=== PATIENT | female | born 1955 | race Caucasian/White ===

== ENCOUNTER 2016-12-03 06:26 | Observation (INO) | payer MEDICARE, OTHER ==
[~2016-12-03] VITALS: Ht 167.6 cm; Wt 53.8 kg
[~2016-12-03 06:26] MED LIST: 00186-0370-20 IH; 00186-0372-20 IH; AGGRENOX CAPSUL1 CAP PO; AMITRIPTYLINE H50 M1 PO; ASPIRIN 81M81 MG/TA2 PO; ASPIRIN E.C. 8181 MG PO; ATIVAN 1MG T1 MG/TAB PO; B-12 100 MCG PO; BUPROPION SR150 MG PO; CEFTIN500 MG PO; CEPHALEXIN500 M1 PO; CHANTIX0.5 MG PO; CYMBALTA 60MG60 MG PO; DEPAKOTE 250MG250 MG PO; DIFLUCAN50 MG PO; FLONASE NASAL S16 GM NS; FLONASEALLERGY NAS; GAS RELIEF80 MG PO; IMDUR 30MG30 MG/TAB PO; LEVOTHYROXINE0.1 MG PO; LIPITOR 80MG80 MG PO; LOPRESSOR 225 MG/TAB PO; LORTAB 5/500 501 TAB PO; LYRICA75 MG PO; MAGNESIUM OXIDE; MULTI VITAMINS1 TAB PO; NEXIUM 40MG40 MG PO; NITROSTAT0.4 MG/TAB SL; NORCO 325 MG-51 TAB PO; OXYCODONE HCL5 MG PO; PHENERGAN 25 TA25 MG PO; PLAVIX 75MG TAB75 MG PO; PREGABALIN; PROAIR ALBUTEROL; PROAIR HFA0.09 MG/AC IH; PYRIDIUM200 M1 PO; RT SPIRIVA18 MCG IH; SINGULAIR 110 MG/TAB; SINGULAIR 110 MG/TAB PO; SPIRIVA RE2.5 MCG/Ac IH; STATIN MED; SYNTHROID0.075 MG/T PO; TYLENOL 325MG325 MG PO; ULTRAM 50MG TAB50 MG PO; VENTOLIN0.09 MG IH; VITAMIN B125000 MCG SL; ZANTAC 150150 MG; ZOCOR40 MG PO; [UNRECOGNIZED DRUG - OTHER]
[2016-12-03 07:35] LABS: BASO % 0.7 % (0.0-2.0); EOS # 0.1 (0.0-0.7); EOS % 1.8 % (0-4.0); GRAN # 3.3 (1.4-6.5); GRAN % 58.4 % (42.2-75.2); HEMOGLOBIN 12.9 g/dl (12.5-16.0); LYMPH # 1.5 (1.2-3.4); LYMPH % 26.8 % (20.0-51.0); MEAN CELL VOLUME 88 fl (80.0-100.0); MEAN CORPUSCULAR HEMOGLOBIN 29 pg (27.0-31.0); MEAN CORPUSCULAR HGB CONC 33 g/dl (33.0-37.0); MEAN PLATELET VOLUME 9.3 fl (7.4-10.4); MONO # 0.7 (0.1-0.6); MONO % 12.1 % (1.7-9.3); PLATELET COUNT 267 K/mm3 (130-400); RED BLOOD COUNT 4.44 M/mm3 (4.10-5.30); REDCELL DISTRIBUTION WIDTH-CV 13.5 % (11.5-14.5); WHITE BLOOD COUNT 5.6 K/mm3 (4.8-10.8)
[2016-12-03 07:42] LABS: ANION GAP 10 mmol/L (7-16); BLOOD UREA NITROGEN 6 mg/dL (7-17); CARBON DIOXIDE 25 mmol/L (22-30); CHLORIDE 104 mmol/L (98-107); CREATININE, serum 0.74 mg/dL (0.52-1.25); GLUCOSE 84 mg/dL (74-106); POTASSIUM 3.2 mmol/L (3.4-5.0); SODIUM 139 mmol/L (137-145)
[2016-12-03] MEDS ORDERED: PLAVIX 75MG TAB75 MG PO (08:10)
[2016-12-03 08:13] LABS: TROPONIN-I < 0.012 ng/mL (0.000-0.034)
[2016-12-03 10:18] VITALS: BP 148/87; PULSE 60; TEMP 97
[2016-12-03 11:54] VITALS: BP 150/87; PULSE 57; TEMP 97
[2016-12-03] MEDS ORDERED: FLORINEF ACETA0.1 MG PO (13:04)
[2016-12-03] MEDS ORDERED: PROTONIX 40MG T40 MG PO (13:04)
[2016-12-03] MEDS ORDERED: LOPRESSOR 225 MG/TAB PO (13:05)
[2016-12-03] MEDS ORDERED: LIPITOR 40MG TA40 MG PO (13:06)
[2016-12-03 15:54] VITALS: BP 137/83; PULSE 61; TEMP 97.7
[2016-12-03 20:15] VITALS: BP 127/83; PULSE 60; TEMP 97
[2016-12-03 22:53] VITALS: BP 118/76; PULSE 63; TEMP 98
[2016-12-04 02:59] VITALS: BP 138/83; PULSE 68; TEMP 97.4
[2016-12-04 07:25] VITALS: BP 118/75; PULSE 67; TEMP 97
[2016-12-04] MEDS ORDERED: NEURONTIN100 MG/CAP PO (09:23)
[2016-12-04] MEDS ORDERED: NORCO 325 MG-51 TAB PO (09:23)
== END 2016-12-04 10:43 | disposition home or self-care (01) ==
LOC: COL.ER 06:26 → MEDICAL 07:53
PROVIDERS: Emergency Medicine
DX: M54.81 Occipital neuralgia (principal); I25.10 Atherosclerotic heart disease of native coronary artery without angina pectoris; Z86.73 Personal history of transient ischemic attack (TIA), and cerebral infarction without residual deficits; J44.9 Chronic obstructive pulmonary disease, unspecified; G43.909 Migraine, unspecified, not intractable, without status migrainosus; F17.210 Nicotine dependence, cigarettes, uncomplicated; Z87.828 Personal history of other (healed) physical injury and trauma; E03.9 Hypothyroidism, unspecified; E87.6 Hypokalemia; G81.94 Hemiplegia, unspecified affecting left nondominant side; I73.9 Peripheral vascular disease, unspecified; E78.5 Hyperlipidemia, unspecified; R20.9 Unspecified disturbances of skin sensation; R56.9 Unspecified convulsions; Z90.49 Acquired absence of other specified parts of digestive tract; Z79.01 Long term (current) use of anticoagulants; Z95.5 Presence of coronary angioplasty implant and graft; Z95.0 Presence of cardiac pacemaker; Z95.820 Peripheral vascular angioplasty status with implants and grafts; Z82.49 Family history of ischemic heart disease and other diseases of the circulatory system; Z90.710 Acquired absence of both cervix and uterus; Z90.722 Acquired absence of ovaries, bilateral
CPT/HCPCS: 99238; G0378; G8978-GP; G8979-GP; G8980-GP; J1650; J3480; J7030

== ENCOUNTER → 2018-08-07 | Outpatient (CLI) | payer MEDICARE, OTHER ==
[~2018-08-07] MED LIST changes: +FLORINEF ACETA0.1 MG PO; +LIPITOR 40MG TA40 MG PO; +NEURONTIN100 MG/CAP PO; +PROTONIX 40MG T40 MG PO
== END ==
LOC: MC.RAD 14:13
DX: Z12.31 Encounter for screening mammogram for malignant neoplasm of breast (principal)

== ENCOUNTER 2018-10-17 20:24 | Observation (INO) | payer MEDICARE, OTHER ==
[~2018-10-17] VITALS: Ht 167.6 cm; Wt 55.9 kg
[2018-10-17] VITALS (95 sets, daily range): O2SAT 97–100
[2018-10-17] MEDS ORDERED: ELIQUIS 5MG PO (20:34)
[2018-10-17 20:46] LABS: BASO # 0.1 (0.0-0.2); EOS # 0.1 (0.0-0.7); EOS % 1.6 % (0-4.0); GRAN # 3.5 (1.4-6.5); GRAN % 47.3 % (42.2-75.2); HEMATOCRIT 41.2 % (37.0-47.0); HEMOGLOBIN 13.3 g/dl (12.5-16.0); LYMPH # 2.8 (1.2-3.4); LYMPH % 38.8 % (20.0-51.0); MEAN CELL VOLUME 90 fl (80.0-100.0); MEAN CORPUSCULAR HEMOGLOBIN 29 pg (27.0-31.0); MEAN CORPUSCULAR HGB CONC 32 g/dl (33.0-37.0); MEAN PLATELET VOLUME 9.4 fl (7.4-10.4); MONO # 0.8 (0.1-0.6); PLATELET COUNT 271 K/mm3 (130-400); RED BLOOD COUNT 4.59 M/mm3 (4.10-5.30); REDCELL DISTRIBUTION WIDTH-CV 12.7 % (11.5-14.5)
[2018-10-17 20:49] LABS: INR 1.1 (0.8-3.0); PROTHROMBIN TIME 12.3 SECONDS (9.7-12.8)
[2018-10-17 20:51] LABS: PARTIAL THROMBOPLASTIN TIME 34.8 SECONDS (26.0-37.0)
[2018-10-17 20:52] LABS: ALANINE AMINOTRANSFERASE 11 U/L (9-52); ALBUMIN 3.8 gm/dL (3.5-5.0); ALKALINE PHOSPHATASE 87 U/L (50-136); ANION GAP 11 mmol/L (7-16); AST,SGOT 22 U/L (15-37); BILIRUBIN,TOTAL 0.4 mg/dL (0.0-1.0); BLOOD UREA NITROGEN 8 mg/dL (7-17); CALCIUM 8.9 mg/dL (8.4-10.2); CARBON DIOXIDE 30 mmol/L (22-30); CHLORIDE 96 mmol/L (98-107); CREATININE, serum 0.83 (0.52-1.25); GLUCOSE 88 mg/dL (74-106); SODIUM 136 mmol/L (137-145); TOTAL PROTEIN 6.7 gm/dL (6.4-8.2)
[2018-10-17 20:54] LABS: POTASSIUM 2.7 mmol/L (3.4-5.0)
[2018-10-17 21:04] LABS: TROPONIN-I < 0.012 ng/mL (0.000-0.035)
--- NOTE | 2018-10-17 22:05 | NUR ---
Phone report per Melissa VELÁZQUEZ in ED.
--- NOTE | 2018-10-17 22:20 | NUR ---
Pt arrived via stretcher x1 staff assist. Daughter originally at bedside until pt requested to use the bed side commode. Pt reported being unable to use a bedpan although BP is within range that concern of pt getting up is not present to this nurse. Pt daughter was shown how to get to waiting room and notified of gathering family once settling pt in. Pt transfered X1 assist well at this time. No c/o of dizziness or lightheadedness.
--- NOTE | 2018-10-17 23:15 | NUR ---
Increased Nitro per titration orders. Please note pain intervention.
[2018-10-18] VITALS (1256 sets, daily range): BP systolic 96–149; BP diastolic 66–87; PULSE 59–70; TEMP 97.4–97.8; O2SAT 92–100
[2018-10-18 05:26] LABS: BASO # 0.1 (0.0-0.2); BASO % 0.9 % (0.0-2.0); EOS # 0.2 (0.0-0.7); EOS % 2.4 % (0-4.0); GRAN # 2.8 (1.4-6.5); GRAN % 44.4 % (42.2-75.2); HEMOGLOBIN 11.5 g/dl (12.5-16.0); LYMPH # 2.8 (1.2-3.4); LYMPH % 43.9 % (20.0-51.0); MEAN CELL VOLUME 89 fl (80.0-100.0); MEAN CORPUSCULAR HEMOGLOBIN 29 pg (27.0-31.0); MEAN CORPUSCULAR HGB CONC 33 g/dl (33.0-37.0); MEAN PLATELET VOLUME 10.5 fl (7.4-10.4); MONO # 0.5 (0.1-0.6); MONO % 8.2 % (1.7-9.3); PLATELET COUNT 228 K/mm3 (130-400); RED BLOOD COUNT 3.95 M/mm3 (4.10-5.30); REDCELL DISTRIBUTION WIDTH-CV 12.7 % (11.5-14.5)
[2018-10-18 05:31] LABS: CALCIUM 8.5 mg/dL (8.4-10.2); CREATININE, serum 0.74 (0.52-1.25); MAGNESIUM 1.7 mg/dL (1.6-2.3); POTASSIUM 4.6 mmol/L (3.4-5.0)
[2018-10-18] MEDS ORDERED: VITAMIN B12 781 TAB PO (05:36)
[2018-10-18] MEDS ORDERED: LIQUIFILM TEARS15 ML OU (05:37)
[2018-10-18] MEDS ORDERED: DEPAKOTE ER 50500 MG PO (05:37)
--- NOTE | 2018-10-18 07:30 | NUR ---
Bedside report provided to Saira Randle RN.
--- NOTE | 2018-10-18 08:15 | NUR ---
Assessment complete, patient resting in bed, denies needs at this time, call light within reach.
--- NOTE | 2018-10-18 11:35 | NUR ---
Patient resting in bed, visiting with family.
--- NOTE | 2018-10-18 15:30 | NUR ---
Patient resting quietly in bed.
--- NOTE | 2018-10-18 17:04 | NUR ---
Patient signed consent for cardiac cath tomorrow.
--- NOTE | 2018-10-18 18:55 | NUR ---
Bedside report received from Saira VELÁZQUEZ. Pt resting in bed with X2 family members leaving the room.
--- NOTE | 2018-10-18 19:01 | NUR ---
Bedside report given to MELANIA Uribe.
--- NOTE | 2018-10-18 21:52 | NUR ---
Pt report provided to Kalie VELÁZQUEZ.
--- NOTE | 2018-10-18 21:55 | NUR ---
Bedside report received from MELANIA Uribe. Transfer of care at this time.
[2018-10-19] VITALS (842 sets, daily range): BP systolic 92–129; BP diastolic 58–76; PULSE 54–71; TEMP 97.2–98; O2SAT 83–100
--- NOTE | 2018-10-19 | NUR ---
Patient awakens easily to noise in the room. Vitals obtained and WNL. Patient has no complaints of pain. All fluids removed from the room in preparation of cardiac cath in the morning. Patient requests to get up to the commode. Standby assist, patient is steady on her feet. Patient returns to bed. No further needs at this time. Will continue to monitor. Call light within reach.
--- NOTE | 2018-10-19 04:00 | NUR ---
Patient asleep upon entering the room. Awakens to name. Vitals obtained and remain WNL. Patient has no complaints of pain. Patient has no further needs at this time. Will continue to monitor. Call light within reach.
[2018-10-19 05:11] LABS: BASO # 0.1 (0.0-0.2); BASO % 1.1 % (0.0-2.0); EOS # 0.1 (0.0-0.7); EOS % 2.6 % (0-4.0); GRAN # 2.5 (1.4-6.5); GRAN % 45.8 % (42.2-75.2); HEMOGLOBIN 11.8 g/dl (12.5-16.0); LYMPH # 2.3 (1.2-3.4); LYMPH % 41.3 % (20.0-51.0); MEAN CELL VOLUME 89 fl (80.0-100.0); MEAN CORPUSCULAR HEMOGLOBIN 29 pg (27.0-31.0); MEAN CORPUSCULAR HGB CONC 33 g/dl (33.0-37.0); MEAN PLATELET VOLUME 9.6 fl (7.4-10.4); MONO # 0.5 (0.1-0.6); PLATELET COUNT 229 K/mm3 (130-400); RED BLOOD COUNT 4.03 M/mm3 (4.10-5.30); REDCELL DISTRIBUTION WIDTH-CV 12.7 % (11.5-14.5)
[2018-10-19 05:25] LABS: BILIRUBIN,TOTAL 0.3 mg/dL (0.0-1.0); CALCIUM 8.2 mg/dL (8.4-10.2); CREATININE, serum 0.73 (0.52-1.25); TOTAL PROTEIN 5.5 gm/dL (6.4-8.2)
--- NOTE | 2018-10-19 07:22 | NUR ---
Bedside report given to MELANIA Forrest
--- NOTE | 2018-10-19 07:23 | NUR ---
Bedside report received from MELANIA Jade.
--- NOTE | 2018-10-19 07:30 | NUR ---
Assessment completed. Pt standy by assist to bedside commode. Pt has steady gait. Voided clear, yellow urine. Pt back to bed and connected to CRM. VSS. Denies any chest pain. C/o headache, refuses pain medication at this time. Discussed plan of care r/t left heart cath procedure for this AM. Pt verbalized understanding. Call light in reach.
--- NOTE | 2018-10-19 07:39 | NUR ---
agricultural labor camp manager RNs here to take pt to left heart cath procedure. Consent signed by pt and in chart. Nitro, heparin and IVFs on hold by bean sprout laborer RNs. Pt denies any chest pain at this time. Pt called and let him know she was going to procedure. Pt taken to bean sprout laborer via ICU bed.
[2018-10-19 07:53] LABS: CHOLESTEROL RISK RATIO 2.9
--- NOTE | 2018-10-19 07:56 | NUR ---
SEE MERGE REPORT FOR MEDICATION ADMINISTRATION TIMES WELL INTRA/POST SEDATION ASSESSMENTS.
--- NOTE | 2018-10-19 08:30 | NUR ---
Report received from micro lab analyst RNAvery at 0824. Pt arrived to ICU 1 from laboratory animal caretaker via bed. Pt alert, oriented x3. Drowsy. Pt denies any pain. Right radial TR band on with 14 cc air inflated. No hematoma or bleeding present. radial pulse +2. Discussed plan of care with pt r/t post cardiac cath checks, bedrest for 1 hour and diet orders. Pt verbalized understanding. HR SR on monitor. Call light in reach.
--- NOTE | 2018-10-19 09:55 | NUR ---
Tech at bedside for echocardiogram. Pt resting in bed, easily arousable. Right radial TR band inflated at 14cc air. No hematoma or bleeding present.
--- NOTE | 2018-10-19 10:28 | NUR ---
SW met with patient about discharge planning. Patient will likely discharge home later today. Patient lives independently at home with her . Patient's PCP is Dr Rogers and she obtains prescriptions from the pharmacy on [address] Patient does not use any DME or home health services. Patient reports her advanced directives are being completed. SW does not anticipate any discharge needs.
--- NOTE | 2018-10-19 10:59 | NUR ---
Pt resting, easily arousable. Denies any pain. Right TR band remains on. total 4cc air taken out. No hematoma or bleeding noted from incision site. HR SB 59 on monitor. Menu offered to pt to order. Pt refuses at this time. Tolerates sips of water. Call light in reach.
--- NOTE | 2018-10-19 12:49 | NUR ---
Pt's family at bedside. Updated on pt status and plans for discharge later today. Pt more alert. Denies any pain. TR band on, all air out at this time. no bleeding or hematoma present. +2 radial pulse. VSS. Pt given menu to order lunch. Call light in reach.
--- NOTE | 2018-10-19 15:05 | NUR ---
Discharge paperwork given to pt. Discussed discharge instructions, med list, follow up appointment and education with pt. Pt has follow up appointment with DR Emery on 11/03 at 2pm. Instructed pt to call PCP for appointment in 1 week. Pt verbalized understanding. Pt signed discharge paperwork.
--- NOTE | 2018-10-19 15:27 | NUR ---
Pt discharged from unit. Pt left unit via wheelchair to private vehicle driven by granddaughter.
== END 2018-10-19 15:27 | disposition home or self-care (01) ==
LOC: COL.ER 20:24 → ICU 22:01
PROVIDERS: Emergency Medicine; Nurse Practitioner; Nurse Practitioner Family; Student in an Organized Health Care Education/Training Program; ADMIT Hospitalist
DX: I20.0 Unstable angina (principal); E87.6 Hypokalemia; R56.9 Unspecified convulsions; G43.909 Migraine, unspecified, not intractable, without status migrainosus; J44.9 Chronic obstructive pulmonary disease, unspecified; E03.9 Hypothyroidism, unspecified; F17.210 Nicotine dependence, cigarettes, uncomplicated; Z79.82 Long term (current) use of aspirin; Z79.01 Long term (current) use of anticoagulants; E78.5 Hyperlipidemia, unspecified; Z95.5 Presence of coronary angioplasty implant and graft; I73.9 Peripheral vascular disease, unspecified; Z86.73 Personal history of transient ischemic attack (TIA), and cerebral infarction without residual deficits; Z90.710 Acquired absence of both cervix and uterus; Z90.49 Acquired absence of other specified parts of digestive tract; Z95.0 Presence of cardiac pacemaker; Z82.49 Family history of ischemic heart disease and other diseases of the circulatory system; Z80.0 Family history of malignant neoplasm of digestive organs; Z80.3 Family history of malignant neoplasm of breast; Z82.3 Family history of stroke; Z80.8 Family history of malignant neoplasm of other organs or systems; Z88.8 Allergy status to other drugs, medicaments and biological substances; Z79.51 Long term (current) use of inhaled steroids; I07.1 Rheumatic tricuspid insufficiency
CPT/HCPCS: 99223-AI; G0378; J1644; J2250; J2405; J3010; J3480; J7030

== ENCOUNTER 2019-04-03 15:35 | Observation (INO) | payer MEDICARE, OTHER ==
[2019-04-03] VITALS (168 sets, daily range): BP systolic 96–116; BP diastolic 67–88; PULSE 60–63; TEMP 97.2–97.6; O2SAT 87–100
[~2019-04-03] VITALS: Ht 167.6 cm; Wt 55.2 kg
[~2019-04-03 15:35] MED LIST changes: +DEPAKOTE ER 50500 MG PO; +ELIQUIS 5MG PO; +LIQUIFILM TEARS15 ML OU; +VITAMIN B12 781 TAB PO
[2019-04-03 16:03] LABS: HEMATOCRIT 45.3 % (37.0-47.0); HEMOGLOBIN 14.9 g/dl (12.5-16.0); MEAN CELL VOLUME 89 fl (80.0-100.0); MEAN CORPUSCULAR HEMOGLOBIN 29 pg (27.0-31.0); MEAN CORPUSCULAR HGB CONC 33 g/dl (33.0-37.0); MEAN PLATELET VOLUME 9.6 fl (7.4-10.4); PLATELET COUNT 324 K/mm3 (130-400); RED BLOOD COUNT 5.07 M/mm3 (4.10-5.30); REDCELL DISTRIBUTION WIDTH-CV 14.6 % (11.5-14.5)
[2019-04-03 16:09] LABS: INR 1.2 (0.8-3.0); PROTHROMBIN TIME 13.5 SECONDS (9.7-12.8)
[2019-04-03 16:16] LABS: ALANINE AMINOTRANSFERASE 21 U/L (9-52); ALBUMIN 4.4 gm/dL (3.5-5.0); ALKALINE PHOSPHATASE 97 U/L (50-136); ANION GAP 9 mmol/L (7-16); AST,SGOT 21 U/L (15-37); BILIRUBIN,TOTAL 0.4 mg/dL (0.0-1.0); BLOOD UREA NITROGEN 14 mg/dL (7-17); CALCIUM 9.2 mg/dL (8.4-10.2); CARBON DIOXIDE 30 mmol/L (22-30); CHLORIDE 98 mmol/L (98-107); CREATININE, serum 0.87 (0.52-1.25); GLUCOSE 85 mg/dL (74-106); LIPASE 113 U/L (23-300); POTASSIUM 3.3 mmol/L (3.4-5.0); SODIUM 137 mmol/L (137-145); TOTAL PROTEIN 7.4 gm/dL (6.4-8.2)
[2019-04-03 16:17] LABS: C-REACTIVE PROTEIN < 0.5 mg/dL (0.0-0.9)
[2019-04-03 16:27] LABS: TROPONIN-I < 0.012 ng/mL (0.000-0.035)
[2019-04-03 16:29] LABS: COLLECTION METHOD CLEAN CATCH
[2019-04-03 16:29] LABS: LYMPHOCYTE 19 % (20.0-51.0); NEUTROPHILS 77 % (42.0-75.2); PLATELET ESTIMATE NORMAL (NORMAL)
[2019-04-03 16:40] LABS: PH 6 (5-8); SQUAMOUS EPITHELIAL None Seen /hpf; URINE APPEARANCE Clear; URINE BACTERIA None Seen /hpf; URINE BILIRUBIN Negative (NEGATIVE); URINE BLOOD 1+ (NEGATIVE); URINE COLOR Straw; URINE GLUCOSE Negative (NEGATIVE); URINE KETONE Negative (NEGATIVE); URINE LEUKOCYTE ESTERASE Negative (NEGATIVE); URINE NITRATE Negative (NEGATIVE); URINE PROTEIN(semi-quant) Negative (NEGATIVE); URINE RBC 0-2 /hpf; URINE UROBILINOGEN Negative (NEGATIVE)
[2019-04-03] MEDS ORDERED: RESTASIS MULTI5.5 ML OP (18:36)
[2019-04-03] MEDS ORDERED: K-DUR20 MEQ PO (18:40)
[2019-04-03] MEDS ORDERED: ASPERCREME1 EACH TP (18:41)
--- NOTE | 2019-04-03 18:44 | NUR ---
NTG gtt d/c'ed
--- NOTE | 2019-04-03 19:15 | NUR ---
Received report from MELANIA Madden.
--- NOTE | 2019-04-03 20:00 | NUR ---
Patient is resting quietly in bed at this time. Patient reports mild 2/10 pain in lower back due to nerve pain and some indigestion; denies chest pain. Vitals remain within normal limits. 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 6 months and is receiving treatment for. Patient requested the bathroom and ambulated to toilet with one-person/standby assist. No skin or mobility issues noted. Will continue to monitor.
[2019-04-04] VITALS (497 sets, daily range): BP systolic 99–104; BP diastolic 74–83; PULSE 59–61; TEMP 97.4–98; O2SAT 82–99
[2019-04-04 05:50] LABS: BASO # 0.1 (0.0-0.2); BASO % 0.8 % (0.0-2.0); EOS # 0.1 (0.0-0.7); GRAN # 4.3 (1.4-6.5); GRAN % 44.3 % (42.2-75.2); HEMATOCRIT 39.8 % (37.0-47.0); HEMOGLOBIN 13.3 g/dl (12.5-16.0); LYMPH # 4.3 (1.2-3.4); LYMPH % 44.4 % (20.0-51.0); MEAN CELL VOLUME 87 fl (80.0-100.0); MEAN CORPUSCULAR HEMOGLOBIN 29 pg (27.0-31.0); MEAN CORPUSCULAR HGB CONC 33 g/dl (33.0-37.0); MEAN PLATELET VOLUME 9.4 fl (7.4-10.4); MONO # 0.9 (0.1-0.6); MONO % 9.3 % (1.7-9.3); PLATELET COUNT 243 K/mm3 (130-400); RED BLOOD COUNT 4.57 M/mm3 (4.10-5.30); REDCELL DISTRIBUTION WIDTH-CV 14.4 % (11.5-14.5)
[2019-04-04 06:02] LABS: ANION GAP 2 mmol/L (7-16); BLOOD UREA NITROGEN 13 mg/dL (7-17); CALCIUM 8.3 mg/dL (8.4-10.2); CARBON DIOXIDE 31 mmol/L (22-30); CHLORIDE 105 mmol/L (98-107); CHOLESTEROL 167 mg/dL (120-200); CHOLESTEROL RISK RATIO 3.3; CREATININE, serum 0.84 (0.52-1.25); GLUCOSE 83 mg/dL (74-106); HDL CHOLESTEROL 50 mg/dL; LDL CHOLESTEROL 91 mg/dL; MAGNESIUM 1.9 mg/dL (1.6-2.3); POTASSIUM 3.9 mmol/L (3.4-5.0); SODIUM 137 mmol/L (137-145); TRIGLYCERIDE 129 mg/dL
[2019-04-04 06:19] LABS: TROPONIN-I < 0.012 ng/mL (0.000-0.035)
--- NOTE | 2019-04-04 07:32 | NUR ---
Report recieved from Camila VELÁZQUEZ. Patient sleeping in bed, offers no S/S pain or discomfort.
--- NOTE | 2019-04-04 07:32 | NUR ---
Report given to MELANIA Bella.
--- NOTE | 2019-04-04 11:10 | NUR ---
Dr. Burris here for medical rounds. Patient ok to discharge if ok with Cardiology. Dr. Rock states ok from Cards stand point to discharge to home.
--- NOTE | 2019-04-04 14:20 | NUR ---
Discharged to home via POV ambulatory with driving. Seat belt on. Instructions, education and medication list reviewed, states understanding. Denies questions or concerns
== END 2019-04-04 14:20 | disposition home or self-care (01) ==
LOC: COL.ER 15:35 → ICU 16:53
PROVIDERS: Emergency Medicine; ADMIT Hospitalist
DX: I25.10 Atherosclerotic heart disease of native coronary artery without angina pectoris (principal); Z95.5 Presence of coronary angioplasty implant and graft; I25.2 Old myocardial infarction; I10 Essential (primary) hypertension; Z86.718 Personal history of other venous thrombosis and embolism; Z79.01 Long term (current) use of anticoagulants; Z79.899 Other long term (current) drug therapy; J44.9 Chronic obstructive pulmonary disease, unspecified; E87.6 Hypokalemia; D72.829 Elevated white blood cell count, unspecified; E03.9 Hypothyroidism, unspecified; K21.9 Gastro-esophageal reflux disease without esophagitis; R51 Headache; I73.9 Peripheral vascular disease, unspecified; Z95.0 Presence of cardiac pacemaker; Z79.82 Long term (current) use of aspirin; F17.210 Nicotine dependence, cigarettes, uncomplicated; Z88.8 Allergy status to other drugs, medicaments and biological substances
CPT/HCPCS: C9113; G0378; J2405

== ENCOUNTER 2020-02-07 15:03 | Observation (INO) | payer MEDICARE, OTHER ==
[~2020-02-07] VITALS: Ht 167.6 cm; Wt 60.0 kg
[~2020-02-07 15:03] MED LIST changes: +ASPERCREME1 EACH TP; +K-DUR20 MEQ PO; +RESTASIS MULTI5.5 ML OP
[2020-02-07 15:24] LABS: BASO # 0.1 (0.0-0.2); EOS # 0.1 (0.0-0.7); EOS % 1.3 % (0-4.0); GRAN # 5.6 (1.4-6.5); GRAN % 61.8 % (42.2-75.2); HEMATOCRIT 45.2 % (37.0-47.0); LYMPH # 2.3 (1.2-3.4); LYMPH % 25.6 % (20.0-51.0); MEAN CELL VOLUME 88 fl (80.0-100.0); MEAN CORPUSCULAR HEMOGLOBIN 29 pg (27.0-31.0); MEAN CORPUSCULAR HGB CONC 33 g/dl (33.0-37.0); MEAN PLATELET VOLUME 9.2 fl (7.4-10.4); MONO # 0.9 (0.1-0.6); PLATELET COUNT 314 K/mm3 (130-400); RED BLOOD COUNT 5.15 M/mm3 (4.10-5.30); REDCELL DISTRIBUTION WIDTH-CV 13.2 % (11.5-14.5)
[2020-02-07 15:30] LABS: INR 1.4 (0.8-3.0); PROTHROMBIN TIME 15.3 SECONDS (9.7-12.8)
[2020-02-07 15:32] LABS: PARTIAL THROMBOPLASTIN TIME 37.7 SECONDS (26.0-37.0)
[2020-02-07 15:35] LABS: ALANINE AMINOTRANSFERASE 24 U/L (4-34); ALBUMIN 4.6 gm/dL (3.5-5.0); ALKALINE PHOSPHATASE 115 U/L (50-136); ANION GAP 10 mmol/L (7-16); AST,SGOT 32 U/L (15-37); BLOOD UREA NITROGEN 6 mg/dL (7-17); CALCIUM 9.4 mg/dL (8.4-10.2); CARBON DIOXIDE 31 mmol/L (22-30); CHLORIDE 101 mmol/L (98-107); CREATININE, serum 0.85 (0.52-1.25); GLUCOSE 92 mg/dL (74-106); POTASSIUM 3.3 mmol/L (3.4-5.0); SODIUM 141 mmol/L (137-145); TOTAL PROTEIN 7.6 gm/dL (6.4-8.2)
[2020-02-07 15:47] LABS: TROPONIN-I < 0.012 ng/mL (0.000-0.035)
[2020-02-07] MEDS ORDERED: PROTONIX 40MG T40 MG PO (17:43)
[2020-02-07] MEDS ORDERED: lidocaine NS (17:45)
[2020-02-07 18:28] LABS: TROPONIN-I 3 HR POST INITIAL < 0.012 ng/mL (0.000-0.034)
--- NOTE | 2020-02-07 19:35 | NUR ---
Pt arrived to room 317 from the ED at this time. Pt alert and oriented x4. Pt oriented to room and call light. Denies any needs at this time. Call light within reach. Will continue to monitor
[2020-02-07 20:00] VITALS: BP 131/64; PULSE 68; TEMP 97.7
[2020-02-07 20:21] VITALS: BP 131/61; PULSE 68; TEMP 97.7
[2020-02-07] MEDS ORDERED: TYLENOL 325MG325 MG PO (21:38)
[2020-02-07] MEDS ORDERED: PROVENTIL0.09 MG/A1 IH (21:41)
[2020-02-07] MEDS ORDERED: HYPROMELLOSE OU (21:53)
[2020-02-07] MEDS ORDERED: CENTRUM SILVER1 CTB PO (21:58)
[2020-02-07] MEDS ORDERED: RT ADVAIR 228 DISKUS IH (21:58)
[2020-02-07] MEDS ORDERED: B-121000 MCG PO (21:59)
[2020-02-07] MEDS ORDERED: BOTOX (22:02)
--- NOTE | 2020-02-07 23:00 | NUR ---
Admission B completed and documented at this time. Med rec reviewed with pt and updated. Allergy and pharmacy confirmed. Pt currently resting in bed. Pt alert and oriented x4. Denies pain. Pt verbalized understanding to notify nursing staff if chest pain/pressure returns. Pt also verbalized understanding that she is NPO. INT to right ac CDI. Telemetry on. Pt denies and needs/concerns at this time. Call light within reach. Will continue to monitor
[2020-02-07 23:58] VITALS: BP 117/71; PULSE 70; TEMP 97.5
[2020-02-08 03:50] VITALS: BP 111/62; PULSE 66; TEMP 97.5
--- NOTE | 2020-02-08 05:01 | NUR ---
Lab in with pt right now to get morning labs. Pt stated she did not sleep well. Reports discorfort from "the way she was lying in bed". INT to right AC CDI. Tele on. Pt denies any needs/concerns. Call light within reach
[2020-02-08 05:13] LABS: BASO # 0.1 (0.0-0.2); BASO % 1.1 % (0.0-2.0); EOS # 0.2 (0.0-0.7); EOS % 2.8 % (0-4.0); GRAN # 2.7 (1.4-6.5); GRAN % 50.7 % (42.2-75.2); HEMATOCRIT 36.2 % (37.0-47.0); LYMPH # 1.8 (1.2-3.4); LYMPH % 34.8 % (20.0-51.0); MEAN CELL VOLUME 90 fl (80.0-100.0); MEAN CORPUSCULAR HEMOGLOBIN 29 pg (27.0-31.0); MEAN CORPUSCULAR HGB CONC 33 g/dl (33.0-37.0); MEAN PLATELET VOLUME 9.3 fl (7.4-10.4); MONO # 0.6 (0.1-0.6); MONO % 10.4 % (1.7-9.3); PLATELET COUNT 244 K/mm3 (130-400); RED BLOOD COUNT 4.04 M/mm3 (4.10-5.30); REDCELL DISTRIBUTION WIDTH-CV 13.5 % (11.5-14.5)
[2020-02-08 05:16] LABS: HEMOGLOBIN 11.9 g/dl (12.5-16.0)
[2020-02-08 05:28] LABS: ANION GAP 4 mmol/L (7-16); BLOOD UREA NITROGEN 12 mg/dL (7-17); CALCIUM 8.2 mg/dL (8.4-10.2); CARBON DIOXIDE 29 mmol/L (22-30); CHLORIDE 105 mmol/L (98-107); CHOLESTEROL 115 mg/dL (120-200); CHOLESTEROL RISK RATIO 2.9; CREATININE, serum 0.83 (0.52-1.25); GLUCOSE 104 mg/dL (74-106); HDL CHOLESTEROL 39 mg/dL; LDL CHOLESTEROL 51 mg/dL; MAGNESIUM 1.7 mg/dL (1.6-2.3); POTASSIUM 3.6 mmol/L (3.4-5.0); SODIUM 138 mmol/L (137-145); TRIGLYCERIDE 124 mg/dL
[2020-02-08 05:40] LABS: TROPONIN-I < 0.012 ng/mL (0.000-0.035)
--- NOTE | 2020-02-08 06:48 | NUR ---
Report given to MELANIA Lennon
[2020-02-08 08:31] VITALS: BP 107/72; PULSE 67; PULSE 68; TEMP 98
--- NOTE | 2020-02-08 09:08 | NUR ---
Assessment complete. Patient relaxing in bed but awoke on my entry. States she feels pretty good this morning. No complaints of pain or discomfort at this time. She is aware of her POC at this time. IV site CD&I. Will continue to monitor. Call light is in reach.
--- NOTE | 2020-02-08 11:55 | NUR ---
First visit from the french weaver. No needs right now.
[2020-02-08 11:59] VITALS: BP 115/71; PULSE 57; TEMP 97.8
--- NOTE | 2020-02-08 15:16 | NUR ---
Reeling Machine Setup Operator met with the patient to complete initial intake. The patient lives in [place] with her Jerald. The patient has a cane, seated walker and a has a tub rail in place. The patient is independent with ADLs. The patient's PCP is Dr. Rogers and patient receives medications from [facility]. The patient has DPOA-HC in the EMR. It designates her son, Luke Estrella and her mother, Alethea Corbin. The patient states that Alethea is in a [facility]. The patient may want to complete new DPOA-HC form. Form provided. She will take them home with her. The patient plans to return home with Jerald and he will provide transportation home.
--- NOTE | 2020-02-08 15:57 | NUR ---
PATIENT LEFT THE FLOOR AT THIS TIME. DISCHARGE INSTRUCTIONS WERE DISCUSSED. NO FURTHER QUESTIONS OR CONCERNS.
== END 2020-02-08 16:38 | disposition home or self-care (01) ==
LOC: COL.ER 15:03 → EDBEDREQ 17:47 → MEDICAL 17:52
PROVIDERS: Emergency Medicine; Physician Assistant; ADMIT Hospitalist
DX: R07.9 Chest pain, unspecified (principal); I25.10 Atherosclerotic heart disease of native coronary artery without angina pectoris; I10 Essential (primary) hypertension; I73.9 Peripheral vascular disease, unspecified; E78.5 Hyperlipidemia, unspecified; J44.9 Chronic obstructive pulmonary disease, unspecified; E87.6 Hypokalemia; F32.9 Major depressive disorder, single episode, unspecified; M79.7 Fibromyalgia; K21.9 Gastro-esophageal reflux disease without esophagitis; G40.909 Epilepsy, unspecified, not intractable, without status epilepticus; G43.909 Migraine, unspecified, not intractable, without status migrainosus; F17.210 Nicotine dependence, cigarettes, uncomplicated; E03.9 Hypothyroidism, unspecified; R00.1 Bradycardia, unspecified; H54.61 Unqualified visual loss, right eye, normal vision left eye; Z95.0 Presence of cardiac pacemaker; Z86.73 Personal history of transient ischemic attack (TIA), and cerebral infarction without residual deficits; Z88.8 Allergy status to other drugs, medicaments and biological substances; Z79.01 Long term (current) use of anticoagulants; Z79.82 Long term (current) use of aspirin; Z79.899 Other long term (current) drug therapy; Z95.828 Presence of other vascular implants and grafts; Z95.818 Presence of other cardiac implants and grafts; Z90.710 Acquired absence of both cervix and uterus; Z90.49 Acquired absence of other specified parts of digestive tract; Z86.718 Personal history of other venous thrombosis and embolism; Z23 Encounter for immunization
CPT/HCPCS: G0008; G0378; J2270; J2405; J7030

== ENCOUNTER 2021-03-04 09:42 | Emergency (ER) | payer MEDICARE, OTHER ==
[~2021-03-04] VITALS: Ht 167.6 cm; Wt 54.5 kg
[~2021-03-04 09:42] MED LIST changes: +B-121000 MCG PO; +BOTOX; +CENTRUM SILVER1 CTB PO; +HYPROMELLOSE OU; +PROVENTIL0.09 MG/A1 IH; +RT ADVAIR 228 DISKUS IH; +lidocaine NS
[2021-03-04 09:59] VITALS: TEMP 97.9
[2021-03-04 10:21] LABS: BASO # 0.1 K/mm3 (0.0-0.2); BASO % 1.1 % (0.0-2.0); EOS # 0.1 K/mm3 (0.0-0.7); EOS % 1.9 % (0-4.0); GRAN # 4.5 K/mm3 (1.4-6.5); HEMATOCRIT 44.6 % (37.0-47.0); HEMOGLOBIN 14.7 g/dl (12.5-16.0); LYMPH # 1.7 K/mm3 (1.2-3.4); LYMPH % 23.6 % (20.0-51.0); MEAN CELL VOLUME 87 fl (80.0-100.0); MEAN CORPUSCULAR HEMOGLOBIN 29 pg (27.0-31.0); MEAN CORPUSCULAR HGB CONC 33 g/dl (33.0-37.0); MEAN PLATELET VOLUME 9.3 fl (7.4-10.4); MONO # 0.7 K/mm3 (0.1-0.6); MONO % 10.3 % (1.7-9.3); PLATELET COUNT 287 K/mm3 (130-400); RED BLOOD COUNT 5.15 M/mm3 (4.10-5.30); REDCELL DISTRIBUTION WIDTH-CV 13.6 % (11.5-14.5)
[2021-03-04 10:29] LABS: INR 1.3 (0.8-3.0)
[2021-03-04 10:32] LABS: PARTIAL THROMBOPLASTIN TIME 36.8 SECONDS (26.0-37.0)
[2021-03-04 10:42] LABS: ALANINE AMINOTRANSFERASE 22 U/L (0-55); ALBUMIN 3.9 gm/dL (3.4-4.8); ALKALINE PHOSPHATASE 106 U/L (40-150); ANION GAP 11 mmol/L (7-16); AST,SGOT 20 U/L (5-34); BILIRUBIN,TOTAL 0.6 mg/dL (0.2-1.2); BLOOD UREA NITROGEN 7 mg/dL (10-20); CALCIUM 9.6 mg/dL (8.4-10.2); CARBON DIOXIDE 23 mmol/L (23-31); CHLORIDE 104 mmol/L (98-107); CREATININE, serum 0.88 mg/dL (0.57-1.11); GLUCOSE 78 mg/dL (70-99); POTASSIUM 3.7 mmol/L (3.5-4.5); SODIUM 138 mmol/L (136-145); TOTAL PROTEIN 6.9 gm/dL (6.2-8.1)
[2021-03-04 10:48] LABS: TROPONIN-I < 0.010 ng/mL (0.00-0.033)
[2021-03-04 12:53] VITALS: BP 120/78; PULSE 70
== END 2021-03-04 12:54 | disposition home or self-care (01) ==
LOC: COL.ER 09:42
PROVIDERS: Family Medicine
DX: R07.9 Chest pain, unspecified (principal); I25.10 Atherosclerotic heart disease of native coronary artery without angina pectoris; E03.9 Hypothyroidism, unspecified; G43.909 Migraine, unspecified, not intractable, without status migrainosus; I10 Essential (primary) hypertension; E78.5 Hyperlipidemia, unspecified; Z95.9 Presence of cardiac and vascular implant and graft, unspecified; Z86.718 Personal history of other venous thrombosis and embolism; Z79.01 Long term (current) use of anticoagulants; Z86.73 Personal history of transient ischemic attack (TIA), and cerebral infarction without residual deficits; Z79.82 Long term (current) use of aspirin; Z79.899 Other long term (current) drug therapy; Z79.1 Long term (current) use of non-steroidal anti-inflammatories (NSAID); Z79.890 Hormone replacement therapy

== ENCOUNTER 2021-03-08 13:00 | Outpatient (RCR) | payer MEDICARE, OTHER | END 2021-03-14 | disposition home or self-care (01) | LOC: MKS.ESL.PT | DX: R27.0 Ataxia, unspecified (principal) ==

== ENCOUNTER 2021-04-12 13:00 | Outpatient (RCR) | payer MEDICARE, OTHER | END 2021-04-20 | disposition still patient (30) | LOC: MKS.ESL.PT | DX: R26.81 Unsteadiness on feet (principal) ==

== ENCOUNTER → 2021-06-11 | Outpatient (CLI) | payer MEDICARE, OTHER | LOC: MC.RAD 13:23 | DX: Z12.31 Encounter for screening mammogram for malignant neoplasm of breast (principal) ==

== ENCOUNTER 2021-07-16 15:30 | Outpatient (RCR) | payer MEDICARE, OTHER | END 2021-07-19 | disposition still patient (30) | LOC: MKS.ESL.PT | DX: R26.0 Ataxic gait (principal) ==

== ENCOUNTER 2021-08-01 15:15 | Outpatient (RCR) | payer MEDICARE, OTHER | END 2021-08-18 | disposition home or self-care (01) | LOC: MKS.ESL.PT | DX: R26.0 Ataxic gait (principal); R26.81 Unsteadiness on feet ==

== ENCOUNTER 2021-09-05 06:02 | Day surgery (SDC) | payer MEDICARE, OTHER ==
[2008-10-29 02:34] VITALS: BP 145/91
[2021-09-05] VITALS (95 sets, daily range): BP systolic 107–144; BP diastolic 61–863; PULSE 60–63; TEMP 98.3; O2SAT 94–99
[~2021-09-05] VITALS: Ht 167.6 cm; Wt 50.3 kg
[2021-09-05 06:50] LABS: HEMATOCRIT 42.8 % (37.0-47.0); HEMOGLOBIN 14.5 g/dl (12.5-16.0); MEAN CELL VOLUME 87 fl (80.0-100.0); MEAN CORPUSCULAR HEMOGLOBIN 30 pg (27-31); MEAN CORPUSCULAR HGB CONC 34 g/dl (33.0-37.0); MEAN PLATELET VOLUME 9.1 fl (7.4-10.4); PLATELET COUNT 310 K/mm3 (130-400); RED BLOOD COUNT 4.91 M/mm3 (4.10-5.30)
[2021-09-05 06:58] LABS: PROTHROMBIN TIME 11.5 SECONDS (9.7-12.8)
[2021-09-05 07:04] LABS: CALCIUM 9.5 mg/dL (8.4-10.2); CREATININE, serum 0.83 mg/dL (0.57-1.11); POTASSIUM 3.9 mmol/L (3.5-4.5)
[2021-09-05] MEDS ORDERED: PRILOSEC 20MG20 MG PO (07:14)
[2021-09-05] MEDS ORDERED: RANEXA 500MG T500 MG PO (07:15)
--- NOTE | 2021-09-05 07:54 | NUR ---
SEE MERGE FOR ALL MEDICATION ADMINISTRATION TIMES, INTRA AND POST SEDATION ASSESSMENTS
--- NOTE | 2021-09-05 10:33 | NUR ---
Initial visit; Patient and her thanked Chemical Engineering Professor for coming in to offer prayer prior to her 'Procedure.' Chemical Engineering Professor and patient along with her talked about the author Bev Jensen and reading through the Bible. A very interesting and uplifting conversation for the patient. Chemical Engineering Professor offered God's blessings.
--- NOTE | 2021-09-05 12:26 | NUR ---
All air released from right radial band,no bleeding observed at site.right wrist wrapped in gauze and coban.
--- NOTE | 2021-09-05 14:43 | NUR ---
Remainder of air removed by charge nurse
== END 2021-09-05 15:13 ==
LOC: COL.CAR 06:02
PROVIDERS: Internal Medicine Cardiovascular Disease
DX: I25.118 Atherosclerotic heart disease of native coronary artery with other forms of angina pectoris (principal); Z79.01 Long term (current) use of anticoagulants; E78.5 Hyperlipidemia, unspecified; I73.9 Peripheral vascular disease, unspecified; I49.5 Sick sinus syndrome; I10 Essential (primary) hypertension; Z79.82 Long term (current) use of aspirin; F17.210 Nicotine dependence, cigarettes, uncomplicated
CPT/HCPCS: J1644; J2250; J3010; J7030

== ENCOUNTER → 2021-10-11 | Outpatient (CLI) | payer MEDICARE, OTHER ==
[~2021-10-11] MED LIST changes: +PRILOSEC 20MG20 MG PO; +RANEXA 500MG T500 MG PO
== END ==
LOC: COL.RAD 13:58
DX: I77.811 Abdominal aortic ectasia (principal); J43.9 Emphysema, unspecified; K57.30 Diverticulosis of large intestine without perforation or abscess without bleeding; I70.90 Unspecified atherosclerosis; Z90.49 Acquired absence of other specified parts of digestive tract
CPT/HCPCS: Q9967

== ENCOUNTER 2023-01-23 15:06 | Emergency (ER) | payer MEDICARE, OTHER ==
[~2023-01-23] VITALS: Ht 167.6 cm; Wt 52.7 kg
[~2023-01-23 15:06] MED LIST changes: +FLOVENT DI100 MCG/Ac IH
[2023-01-23 15:08] VITALS: TEMP 98
[2023-01-23 15:34] LABS: BASO # 0.1 K/mm3 (0.0-0.2); BASO % 0.8 % (0.0-2.0); EOS # 0.1 K/mm3 (0.0-0.7); EOS % 1.7 % (0.0-4.0); GRAN # 4.5 K/mm3 (1.4-6.5); GRAN % 58.5 % (42.2-75.2); HEMATOCRIT 37.4 % (37.0-47.0); HEMOGLOBIN 12.5 g/dl (12.5-16.0); LYMPH # 2.2 K/mm3 (1.2-3.4); LYMPH % 28.6 % (20.0-51.0); MEAN CELL VOLUME 87 fl (80.0-100.0); MEAN CORPUSCULAR HEMOGLOBIN 29 pg (27-31); MEAN CORPUSCULAR HGB CONC 33 g/dl (33.0-37.0); MEAN PLATELET VOLUME 9.3 fl (7.4-10.4); MONO # 0.8 K/mm3 (0.1-0.6); MONO % 10.3 % (1.7-9.3); PLATELET COUNT 249 K/mm3 (130-400); RED BLOOD COUNT 4.28 M/mm3 (4.10-5.30); REDCELL DISTRIBUTION WIDTH-CV 13.7 % (11.5-14.5)
[2023-01-23 15:35] LABS: INR 1.3 (0.8-3.0); PROTHROMBIN TIME 13.6 SECONDS (9.7-12.8)
[2023-01-23 15:48] LABS: ALBUMIN 3.6 gm/dL (3.4-4.8); BILIRUBIN,TOTAL 0.6 mg/dL (0.2-1.2); CALCIUM 9.2 mg/dL (8.4-10.2); CREATININE, serum 0.8 mg/dL (0.57-1.11); POTASSIUM 3.8 mmol/L (3.5-4.5); TOTAL PROTEIN 6.4 gm/dL (6.2-8.1)
[2023-01-23 15:54] LABS: TROPONIN-I 0.014 ng/mL (0.00-0.033)
[2023-01-23 18:23] VITALS: BP 110/78; PULSE 64
== END 2023-01-23 18:44 | disposition home or self-care (01) ==
LOC: COL.ER 15:06
PROVIDERS: Nurse Practitioner
DX: R07.9 Chest pain, unspecified (principal); Z86.718 Personal history of other venous thrombosis and embolism; Z79.899 Other long term (current) drug therapy; Z79.01 Long term (current) use of anticoagulants; Z95.5 Presence of coronary angioplasty implant and graft; Z28.310 Unvaccinated for COVID-19

== ENCOUNTER → 2023-11-27 | Outpatient (CLI) | payer MEDICARE, OTHER | LOC: COL.RAD 16:05 | DX: R06.02 Shortness of breath (principal); R07.89 Other chest pain ==